=== PATIENT | female | born 1930 | race Caucasian/White ===

== ENCOUNTER 2016-12-30 20:36 | Emergency (ER) | payer OTHER ==
[~2016-12-30] VITALS: Ht 165.1 cm; Wt 90.7 kg
[~2016-12-30 20:36] MED LIST: ALLERPLEX; ASPIR 8181 MG PO; ATENOLOL 50MG T50 MG PO; BAYER CHEWABLE81 MG PO; CARDIZEM CD120 MG PO; CATALYN; COUMADIN 5 MG TA5 M1 PO; DILTIAZEM 24HR120 M1 PO; ENZYCORE; FISH OIL; IMMUPLEX; KEFLEX500 MG PO; LEVAQUIN 250 M250 MG PO; NORCO 5-325 TA1 EACH PO; OMEGA; PROPAFENONE 15150 MG PO; RNA; SAVAYSA60 MG PO; VITAMIN C500 M1 PO; VITAMIN E; ZINC; ZYPAN; [UNRECOGNIZED DRUG - OTHER]; [UNRECOGNIZED DRUG - OTHER]
[2016-12-30] MEDS ORDERED: LASIX 40 MG TAB40 M2 PO (21:08)
[2016-12-30] MEDS ORDERED: COZAAR 25 MG TA25 M1 PO (21:08)
[2016-12-30 21:21] LABS: HEMATOCRIT 38.9 % (37.0-47.0); HEMOGLOBIN 13.1 gm/dL (12.0-15.0); MCH 31.7 pg (26.0-34.0); MCHC 33.8 g/dL (28.0-37.0); MCV 93.8 fL (80.0-100.0); RBC 4.15 mil/uL (4.20-5.00); RDW 15.9 % (10.5-14.5)
[2016-12-30 21:36] LABS: INR 3.1; PROTIME 31.7 Seconds (9.3-11.4)
== END 2016-12-30 22:02 | disposition home or self-care (01) ==
LOC: ER 20:36
PROVIDERS: Physician Assistant
DX: R04.0 Epistaxis (principal); Z79.01 Long term (current) use of anticoagulants; I48.0 Paroxysmal atrial fibrillation; I10 Essential (primary) hypertension; Z98.890 Other specified postprocedural states; Z91.040 Latex allergy status

== ENCOUNTER → 2017-09-02 | Outpatient (CLI) | payer OTHER ==
[~2017-09-02] MED LIST changes: +COZAAR 25 MG TA25 M1 PO; +LASIX 40 MG TAB40 M2 PO
--- NOTE | ~2017-09-02 | 2DMMODE ---
[facility] [place] [address] 2 D/M-MODE ECHOCARDIOGRAM Name: PATRICK HINOJOSA Room #: REG [facility]#: [id number] Admission: 09/02/17 Attend Phys: Jay Corea MD Discharge: Date of : 30 Date of Service: 09/02/17 1021 Report #: [id number] THIS REPORT FOR: //name// APPROVED REPORT Study performed: 09/02/2017 10:26:44 EXAM: Comprehensive 2D, Doppler, and color-flow Echocardiogram Patient Location: Out-Patient Room #: Echo lab Status: routine BSA: 1.79 HR: 76 bpm BP: 122/84 mmHg Other Information Study Quality: Good Indications Atrial Fibrillation 2D Dimensions RVDd: 38.88 mm LVEF(%): 49.08 (>50%) IVSd: 10.52 (7-11mm) LVOT Diam: 20.69 (18-24mm) LVDd: 52.96 mm PWd: 10.61 (7-11mm) Ascending Ao: 30.83 (22-36mm) LVDs: 39.71 (25-40mm) Aortic Root: 28.54 mm IVC: 17.00 mm Diaz's LVEF: 49.08 % Volumes Left Atrial Volume (Systole) Single Plane 4CH: 64.40 mL Single Plane 2CH: 76.07 mL LA ESV Index: 43.00 mL/m2 Aortic Valve AoV Peak Douglas.: 0.98 m/s AO Peak Gr.: 3.82 mmHg LVOT Max P.06 mmHg LVOT Max V: 0.72 m/s AMBER Vmax: 2.47 cm2 AI Vmax: 4.14 m/s AI [place]: 1.70 m/s2 AI PHT: 709.65 ms Mitral Valve [facility] [place] [place] [address] 2 D/M-MODE ECHOCARDIOGRAM Name: PATRICK HINOJOSA Room #: [facility]#: [id number] Admission: 09/02/17 Attend Phys: Jay Corea MD Discharge: Date of : 30 Date of Service: 09/02/17 1021 Report #: [id number] MV Decel. Time: 274.81 ms MV E Max Douglas.: 0.81 m/s IVRT: 92.27 ms Pulmonary Valve PV Peak Douglas.: 0.81 m/s PV Peak Gr.: 2.65 mmHg MS End Vmax: 1.18 m/s Tricuspid Valve TR Peak Douglas.: 2.46 m/s TR Peak Gr.: 24.63 mmHg PA Pressure: 30.00 mmHg Left Ventricle The left ventricle is normal size. There is hypokinesis in the basal inferoseptal wall. There is hypokinesis in the mid-inferoseptal wall. There is normal left ventricular wall thickness. Left ventricular systolic function is mildly decreased. LVEF is 40-45%. This study is not technically sufficient to allow evaluation of the LV diastolic function due to atrial fibrillation. Right Ventricle The right ventricle is normal size. The right ventricular systolic function is normal. Atria Left atrium is dilated. Right atrium is dilated. Aortic Valve The aortic valve is normal in structure. Aortic valve is calcified. Mild aortic regurgitation. There is no aortic valvular stenosis. Mitral Valve The mitral valve is normal in structure. Mild to moderate mitral regurgitation. No evidence of mitral valve stenosis. Tricuspid Valve The tricuspid valve is normal in structure. There is mild to moderate tricuspid regurgitation. The right atrial pressure is estimated at mmHg. There is no pulmonary hypertension. Pulmonic Valve The pulmonary valve is normal in structure. Mild pulmonic regurgitation. [facility] [address] [place] [address] 2 D/M-MODE ECHOCARDIOGRAM Name: PATRICK HINOJOSA Room #: REG CL [facility]#: [id number] Admission: 09/02/17 Attend Phys: Jay Corea MD Discharge: Date of : 30 Date of Service: 09/02/17 1021 Report #: [id number] Great Vessels The aortic root is normal in size. IVC is normal in size and collapses >50% with inspiration. Pericardium There is no pericardial effusion. <Conclusion> The left ventricle is normal size. Left ventricular systolic function is mildly decreased. The right ventricle is normal size. Left atrium is dilated. Right atrium is dilated. Mild aortic regurgitation. Mild to moderate mitral regurgitation. There is mild to moderate tricuspid regurgitation. The right atrial pressure is estimated at mmHg. <ELECTRONICALLY SIGNED> By: Jay Corea MD 09/02/17 1021 1021 1021 Jay Corea MD /INF
== END ==
LOC: CV 09:12
DX: I48.0 Paroxysmal atrial fibrillation (principal); I08.3 Combined rheumatic disorders of mitral, aortic and tricuspid valves; I70.0 Atherosclerosis of aorta

== ENCOUNTER 2017-09-29 11:49 | Emergency (ER) | payer OTHER ==
[~2017-09-29] VITALS: Ht 157.5 cm; Wt 72.1 kg
[2017-09-29 13:57] VITALS: BP 124/76
[2017-12-25] MEDS ORDERED: LOPRESSOR50 PO (22:03)
== END 2017-09-29 13:59 | disposition home or self-care (01) ==
LOC: ER 11:49
DX: S60.222A Contusion of left hand, initial encounter (principal); M25.511 Pain in right shoulder; I10 Essential (primary) hypertension; I48.0 Paroxysmal atrial fibrillation; V43.52XA Car driver injured in collision with other type car in traffic accident, initial encounter; Z88.6 Allergy status to analgesic agent; Z91.040 Latex allergy status; Z88.8 Allergy status to other drugs, medicaments and biological substances; Y93.89 Activity, other specified; Y92.89 Other specified places as the place of occurrence of the external cause; Y99.8 Other external cause status; Z88.0 Allergy status to penicillin

== ENCOUNTER 2017-12-05 17:00 | Emergency (ER) | payer OTHER ==
[~2017-12-05] VITALS: Ht 167.6 cm; Wt 71.7 kg
--- NOTE | ~2017-12-05 | EKG ---
[address] [address] ELECTROCARDIOGRAM REPORT Name: PATRICK HINOJOSA Room #: [facility]#: [id number] Admission: 12/05/17 Attend Phys: Discharge: 12/05/17 Date of : 30 Report #: [id number] THIS REPORT FOR: //name// [facility] ED Test Date: 2017-12-05 Test Time: 17:05:27 Pat Name: PATRICK HINOJOSA Department: Room: Gender: F Medical Receptionist Medical Assistant: CWEINIKOLE : 1930 Requested By: Trev Leung Order Number: [id number] MD: Jose Cruz Krause Measurements Intervals [place] Rate: 95 P: [place]: QRS: 26 QRSD: 99 T: 35 QT: 387 QTc: 487 Interpretive Statements Atrial fibrillation Nonspecific ST segment abnormality Borderline prolonged QT interval Compared to ECG 08/10/2016 13:51:55 No significant change was found Electronically Signed On 12-06-2017 7:59:35 ACADEMIC COUNSELOR by Jose Cruz Krause [email or web address] <ELECTRONICALLY SIGNED> By: Jose Cruz Krause MD, [facility] 12/06/17 0759 04 Jose Cruz Krause MD, [facility] /EPI
[2017-12-05 17:41] LABS: ABSOLUTE NEUTROPHILS 4.8 thou/uL (1.4-8.2); BASOPHILS 0.7 % (0.0-2.0); HEMATOCRIT 38.9 % (37.0-47.0); HEMOGLOBIN 13.3 gm/dL (12.0-15.0); LYMPHOCYTES 25.4 % (24.0-44.0); MCH 31.8 pg (26.0-34.0); MCHC 34.2 g/dL (28.0-37.0); MCV 93.1 fL (80.0-100.0); MONOCYTES 10.7 % (1.0-8.0); PLATELET COUNT 173 thou/uL (150-400); POLYS 61.2 % (36.0-66.0); RBC 4.18 mil/uL (4.20-5.00); RDW 14.6 % (10.5-14.5); WBC 7.8 thou/uL (4.0-11.0)
[2017-12-05 17:45] LABS: ANION GAP 10 mmol/L (7-16); BUN 36 mg/dL (7-18); CALCIUM 8.8 mg/dL (8.5-10.1); CHLORIDE 103 mmol/L (98-107); CO2 27 mmol/L (21-32); CREATININE 1.3 mg/dL (0.6-1.0); GLUCOSE 108 mg/dL (74-106); POTASSIUM 4.3 mmol/L (3.5-5.1); SODIUM 140 mmol/L (136-145)
[2017-12-05 17:53] LABS: TROPONIN-I < 0.04 ng/mL (<0.06)
[2017-12-05 18:26] VITALS: BP 139/71
[2017-12-25] MEDS ORDERED: LOPRESSOR50 PO (22:03)
== END 2017-12-05 19:10 | disposition home or self-care (01) ==
LOC: ER 17:00
PROVIDERS: Emergency Medicine
DX: R07.89 Other chest pain (principal); I48.91 Unspecified atrial fibrillation; I10 Essential (primary) hypertension; Z88.1 Allergy status to other antibiotic agents; Z88.5 Allergy status to narcotic agent; Z91.040 Latex allergy status

== ENCOUNTER → 2018-03-10 | Outpatient (CLI) | payer OTHER ==
[~2018-03-10] MED LIST changes: +LOPRESSOR50 PO
--- NOTE | ~2018-03-10 | 2DMMODE ---
[facility] [place] [address] 2 D/M-MODE ECHOCARDIOGRAM Name: MICAELAPATRICK Room #: REG [facility]#: [id number] Admission: 03/10/18 Attend Phys: Jay Corea MD Discharge: Date of : 30 Date of Service: 03/10/18 1448 Report #: [id number] THIS REPORT FOR: //name// APPROVED REPORT Study performed: 03/10/2018 13:21:08 EXAM: Comprehensive 2D, Doppler, and color-flow Echocardiogram Patient Location: Echo lab Status: routine BSA: 1.80 HR: 112 bpm BP: 158/106 mmHg Other Information Study Quality: Good Indications Atrial Fibrillation 2D Dimensions RVDd: 30.38 mm LVEF(%): 43.60 (>50%) IVSd: 9.61 (7-11mm) LVOT Diam: 21.38 (18-24mm) LVDd: 52.94 mm PWd: 9.75 (7-11mm) Ascending Ao: 32.17 (22-36mm) LVDs: 41.44 (25-40mm) Aortic Root: 29.79 mm IVC: 16.00 mm Diaz's LVEF: 43.60 % Volumes Left Atrial Volume (Systole) Single Plane 4CH: 51.76 mL Single Plane 2CH: 73.17 mL LA ESV Index: 38.00 mL/m2 Aortic Valve AoV Peak Douglas.: 1.04 m/s AO Peak Gr.: 4.30 mmHg LVOT Max P.61 mmHg LVOT Max V: 0.64 m/s AMBER Vmax: 2.20 cm2 AI Vmax: 4.28 m/s AI [place]: 2.13 m/s2 AI PHT: 601.32 ms Mitral Valve [facility] [place] [address] 2 D/M-MODE ECHOCARDIOGRAM Name: PATRICK HINOJOSA Room #: REG [facility]#: [id number] Admission: 03/10/18 Attend Phys: Jay Corea MD Discharge: Date of : 30 Date of Service: 03/10/18 1448 Report #: [id number] MV Decel. Time: 194.04 ms MV E Max Douglas.: 0.81 m/s IVRT: 79.97 ms Pulmonary Valve PV Peak Douglas.: 0.72 m/s PV Peak Gr.: 2.12 mmHg Tricuspid Valve TR Peak Douglas.: 2.68 m/s RAP Estimate: 5.00 mmHg TR Peak Gr.: 28.96 mmHg PA Pressure: 34.00 mmHg Left Ventricle The left ventricle is normal size. There is normal left ventricular wall thickness. Left ventricular systolic function is mildly decreased. LVEF is 45%. This study is not technically sufficient to allow evaluation of the LV diastolic function due to atrial fibrillation. Right Ventricle The right ventricle is normal size. Right ventricle is mildly hypokinetic. Atria Left atrium is mildly dilated. Right atrium is mildly dilated. Aortic Valve The aortic valve is normal in structure. Mild aortic regurgitation. There is no aortic valvular stenosis. Mitral Valve The mitral valve is normal in structure. Moderate mitral regurgitation. No evidence of mitral valve stenosis. Tricuspid Valve The tricuspid valve is normal in structure. Mild tricuspid regurgitation. PAP is estimated at 34 mmHg. Pulmonic Valve The pulmonary valve is normal in structure. Mild pulmonic regurgitation. Great Vessels The aortic root is normal in size. IVC is normal in size and collapses >50% with inspiration. [facility] [address] [place] [address] 2 D/M-MODE ECHOCARDIOGRAM Name: PATRICK HINOJOSA Room #: REG [facility]#: [id number] Admission: 03/10/18 Attend Phys: Jay Corea MD Discharge: Date of : 30 Date of Service: 03/10/18 1448 Report #: [id number] Pericardium There is no pericardial effusion. <Conclusion> Left ventricular systolic function is mildly decreased. The right ventricle is normal size. Left atrium is mildly dilated. Right atrium is mildly dilated. Mild aortic regurgitation. Moderate mitral regurgitation. Mild tricuspid regurgitation. PAP is estimated at 34 mmHg. <ELECTRONICALLY SIGNED> By: Jay Corea MD 03/10/18 1448 1448 1448 Jay Corea MD /INF
== END ==
LOC: NUC 08:37
DX: I08.3 Combined rheumatic disorders of mitral, aortic and tricuspid valves (principal)

== ENCOUNTER 2018-12-10 13:16 | Emergency (ER) | payer OTHER ==
[~2018-12-10] VITALS: Ht 165.1 cm; Wt 75.8 kg
[2018-12-10 14:28] LABS: URINE BILIRUBIN NEGATIVE (Negative); URINE BLOOD NEGATIVE (Negative); URINE CLARITY CLEAR; URINE COLOR YELLOW; URINE GLUCOSE-RANDOM* NEGATIVE (Negative); URINE KETONES NEGATIVE (Negative); URINE NITRITE-REFLEX NEGATIVE (Negative); URINE PROTEIN (DIPSTICK) NEGATIVE (Negative); URINE UROBILINOGEN 0.2 E.U./dl (0.2-1.0)
[2018-12-10 14:29] LABS: URINE LEUKOCYTES-REFLEX 1+ (Negative)
[2018-12-10 14:46] LABS: CRYSTALS None Seen /LPF (None Seen); HYALINE CASTS 4-10 Moderate /LPF (None Seen); MUCUS 4-6 Moderate strn/LPF (None Seen); SQUAMOUS 4-10 Moderate /LPF (0-3); URINE RBC 0-2 Rare /HPF (0-2); URINE WBC-REFLEX >25 Many /HPF (0-5); WBC CLUMPS Many (None Seen)
[2018-12-10 15:40] LABS: ANION GAP 12 mmol/L (7-16); BUN 23 mg/dL (7-18); CALCIUM 8.8 mg/dL (8.5-10.1); CHLORIDE 103 mmol/L (98-107); CO2 25 mmol/L (21-32); CREATININE 1.1 mg/dL (0.6-1.0); GLUCOSE 83 mg/dL (74-106); POTASSIUM 4.2 mmol/L (3.5-5.1); SODIUM 140 mmol/L (136-145)
[2018-12-10 15:49] LABS: ALBUMIN 3.2 g/dL (3.4-5.0); LIPASE 161 U/L (73-393); SGOT 37 U/L (15-37); SGPT 26 U/L (30-65); TOTAL BILIRUBIN 0.8 mg/dL (<0.1-1.0); TOTAL PROTEIN 6.3 g/dL (6.4-8.2); TROPONIN-I <0.06 ng/mL (<0.06)
[2018-12-10 17:11] LABS: HEMATOCRIT 34.9 % (37.0-47.0); HEMOGLOBIN 11.9 gm/dL (12.0-15.0); MCH 31.3 pg (26.0-34.0); PLATELET COUNT 126 thou/uL (150-400); RBC 3.79 mil/uL (4.20-5.00); RDW 13.8 % (10.5-14.5); WBC 4.8 thou/uL (4.0-11.0)
[2018-12-10] MEDS ORDERED: KEFLEX500 M1 PO (17:31)
[2018-12-10] MEDS ORDERED: ZOFRAN4 MG PO (17:31)
[2018-12-10 17:56] LABS: ABSOLUTE NEUTROPHILS 2.9 thou/uL (1.4-8.2); ANISOCYTOSIS 1+
[2018-12-10 18:10] VITALS: BP 152/47
--- NOTE | 2018-12-11 07:49 | EKG ---
[address] [address] ELECTROCARDIOGRAM REPORT Name: PATRICK HINOJOSA Room #: [facility]#: [id number] ������������������ Admission: 12/10/18 ������������������ Attend Phys: Discharge: 12/10/18 ������������������ Date of : 30 Report #: [id number] ����������������������������������������������������������������� [id number] THIS REPORT FOR: //name// [facility] ED Test Date: 2018-12-10 Test Time: 14:46:54 Pat Name: PATRICK HINOJOSA Department: Room: Gender: F Continuous Improvement Black Belt: : 1930 Requested By: Meredith Elias Order Number: [id number] MD: Jose Cruz Krause Measurements Intervals [place] Rate: 73 P: [place]: QRS: 26 QRSD: 100 T: 35 QT: 409 QTc: 451 Interpretive Statements Atrial fibrillation Nonspecific ST segment abnormality Compared to ECG 12/05/2017 17:05:27 No significant changes Electronically Signed On 12-11-2018 7:49:42 CDT by Jose Cruz Krause [email or web address] ��������������������������������������������� <ELECTRONICALLY SIGNED> ���������������������������������������� By: Jose Cruz Krause MD, [facility] ��������������������������������������������� 12/11/18 0749 1446 1446 Jose Cruz Krause MD, [facility] /EPI
== END 2018-12-10 17:50 | disposition home or self-care (01) ==
LOC: ER 13:16
PROVIDERS: Nurse Practitioner Family
DX: A08.4 Viral intestinal infection, unspecified (principal); N39.0 Urinary tract infection, site not specified; R11.2 Nausea with vomiting, unspecified; I48.0 Paroxysmal atrial fibrillation; I10 Essential (primary) hypertension; Z88.1 Allergy status to other antibiotic agents; Z88.5 Allergy status to narcotic agent; Z91.040 Latex allergy status; Z98.890 Other specified postprocedural states; Z88.8 Allergy status to other drugs, medicaments and biological substances

== ENCOUNTER 2019-04-09 17:34 | Emergency (ER) | payer OTHER ==
[~2019-04-09] VITALS: Ht 160 cm; Wt 73.0 kg
[~2019-04-09 17:34] MED LIST changes: +KEFLEX500 M1 PO; +ZOFRAN4 MG PO
[2019-04-09 19:49] VITALS: BP 135/87
== END 2019-04-09 19:50 | disposition home or self-care (01) ==
LOC: ER 17:34
DX: R51 Headache (principal); M54.2 Cervicalgia; M25.511 Pain in right shoulder; M25.512 Pain in left shoulder; I48.0 Paroxysmal atrial fibrillation; I10 Essential (primary) hypertension; Z88.1 Allergy status to other antibiotic agents; Z88.5 Allergy status to narcotic agent; Z91.040 Latex allergy status; V49.09XA Driver injured in collision with other motor vehicles in nontraffic accident, initial encounter; Y93.89 Activity, other specified; Y92.89 Other specified places as the place of occurrence of the external cause; Y99.8 Other external cause status

== ENCOUNTER → 2020-04-13 | Outpatient (CLI) | payer OTHER | LOC: SJCVCIMAG 12-21 09:18 | PROVIDERS: ATTEND Internal Medicine Cardiovascular Disease | DX: I08.3 Combined rheumatic disorders of mitral, aortic and tricuspid valves (principal); R94.31 Abnormal electrocardiogram [ECG] [EKG]; I11.9 Hypertensive heart disease without heart failure; I48.91 Unspecified atrial fibrillation; I42.9 Cardiomyopathy, unspecified; Z79.899 Other long term (current) drug therapy ==